=== PATIENT | female | born 1940 ===

== ENCOUNTER → 2023-02-26 | Outpatient (CLI) | payer MEDICARE ==
[2023-02-27 10:01] LABS: Candida species (DNA Probe) Negative (NEGATIVE); G. vaginalis (DNA Probe) Positive (NEGATIVE); T. vaginalis (DNA Probe) Negative (NEGATIVE)
== END ==
LOC: LAB SHORT 18:14 → LAB 18:14
PROVIDERS: Family Medicine
DX: N89.8 Other specified noninflammatory disorders of vagina (principal)
CPT/HCPCS: 87480; 87510; 87660